=== PATIENT | male | born 1970 | race Caucasian/White ===

== ENCOUNTER 2016-11-23 06:51 | Emergency (ER) | payer MEDICARE ==
[2016-11-23 07:36] LABS: BASO % 0.5 % (0.2-1.2); EOS % 0.3 % (0.8-7.0); GRAN # 3.7 10_X3_uL (1.8-5.4); GRAN % 63.7 % (34.0-67.9); HEMATOCRIT 41.4 % (40-51); HEMOGLOBIN 14.7 g/dL (13.7-17.5); LYMPH # 1.5 10_X3_uL (1.3-3.6); LYMPH % 26.2 % (21.8-53.1); MEAN CORPUSCULAR HEMOGLOBIN 31.7 pg (27.0-33.0); MEAN CORPUSCULAR HGB CONC 35.5 g/dL (32.0-36.0); MEAN CORPUSCULAR VOLUME 89.4 fL (79-92); MEAN PLATELET VOLUME 10.6 fl (7.5-11.5); MONO # 0.5 10_X3_uL (0.3-0.8); MONO % 9.3 % (5.3-12.2); PLATELET COUNT 107 x10_3/uL (163-337); RED BLOOD COUNT 4.63 x10_6/uL (4.6-6.1); RED CELL DISTRIBUTION WIDTH 13.1 % (11.6-14.4); WHITE BLOOD COUNT 5.8 x10_3/uL (4.2-9.1)
[2016-11-23 07:51] LABS: ALBUMIN 4.3 gm/dL (3.4-5.0); ALKALINE PHOSPHATASE 39 U/L (50-136); ALT/SGPT 31 U/L (7.53-40.17); AMYLASE 18 U/L (15.62-74.58); AST/SGOT 48 U/L (6.66-35.34); BILIRUBIN,TOTAL 1.94 mg/dL (0.0-1.0); BLOOD UREA NITROGEN 10 mg/dL (7-18); CALCIUM 8.7 mg/dL (8.7-10.7); CARBON DIOXIDE 25 mmol/L (21-32); CREATININE 0.8 mg/dL (0.6-1.3); GLUCOSE,RANDOM 211 mg/dL (70-99); LIPASE 70 U/L (6.75-60.75); POTASSIUM 4.2 mmol/L (3.5-5.1); SODIUM 136 mmol/L (136-145)
[2016-11-23 07:56] LABS: THYROID STIMULATING HORMONE 2.15 uIU/mL (0.34-4.82)
[2016-11-23 08:00] LABS: TROP-I < 0.30 NG/ML (0.00-0.30)
== END 2016-11-23 10:47 | disposition home or self-care (01) ==
LOC: ER 06:51
PROVIDERS: General Practice
DX: R11.10 Vomiting, unspecified (principal); I10 Essential (primary) hypertension; R53.83 Other fatigue; E11.9 Type 2 diabetes mellitus without complications; M54.9 Dorsalgia, unspecified; Z88.1 Allergy status to other antibiotic agents; Z88.8 Allergy status to other drugs, medicaments and biological substances
CPT/HCPCS: 36415; 80053; 82150; 83690; 84443; 85025; 87400; 93005; 96361; 96374; 96375; 99070; 99284; 99284-25